=== PATIENT | male | born 1985 | race Caucasian/White ===

== ENCOUNTER 2016-06-26 07:08 | Emergency (ER) | payer OTHER ==
[~2016-06-26] VITALS: Ht 170.2 cm; Wt 97.5 kg
[~2016-06-26 07:08] MED LIST: AMOXICILLIN875 M1 PO; IBUPROFEN800 M1 PO; Magic mouthwash PO; PREDNISONE20 M1 PO
[2016-06-26 07:15] VITALS: BP 115/80
--- NOTE | 2016-06-26 07:55 | ED GENERAL ADULT ---
History of Present Illness General Chief Complaint: Lower Extremity Problems Stated Complaint: RIGHT KNEE PAIN Source: patient, family Exam Limitations: no limitations Vital Signs & Intake/Output Vital Signs & Intake/Output Vital Signs Date Time Temp Pulse Resp B/P Pulse O2 O2 Flow FiO2 Ox Delivery Rate 06/26 0806 96.9 06/26 0715 96.9 86 20 115/80 98 Room Air Allergies Coded Allergies: No Known Allergies (11/13/15) Reconcile Medications Naproxen (Naprosyn) 500 MG TABLET 1 TAB PO BID KNEE PAIN Triage Note: PT TO ED C/O RIGHT KNEE PAIN X MONTHS. WORSE LAST NIGHT, STATES HE WAS UNABLE TO WALK ON IT. PAIN IS TO RIGHT KNEE AND BEHIND RIGHT KNEE. STATES PAIN RADIATES UP TO RIGHT HIP WELL. REFUSING MEDS IN TRIAGE. DENIES ANY INJURY. Triage Nurses Notes Reviewed? yes HPI: This is a 30-year-old male with no significant past medical history who comes in for chief complaint of right knee pain. He does state that he has chronic bilateral knee pain for the past year to year and a half. However, his right knee is worse than the left. He states that the that knee clicks, locks, and even gives out at times. Last night he felt a sharp pain in the back of his knee and the upper pole that radiated to his right hip. He rates it a 10 out of 10 stabbing pain that only remits when he is laying down and not putting any pressure on that leg. 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 He cannot remember the nature of the tumor. He does states that he had his entire leg in a cast for 6-8 months. Denies any chemotherapy or radiotherapy. Patient denies any constitutional symptoms including fever, night sweats, rash, nausea, vomiting, any other joint pain, swelling, or erythema. (LEÓN MORENO,[facility]) Past History Travel History Traveled to [place] past 21 day No Medical History Any Pertinent Medical History? none Neurological: NONE EENT: NONE Cardiovascular: NONE Respiratory: NONE Gastrointestinal: NONE Hepatic: NONE Renal: NONE Musculoskeletal: NONE Psychiatric: NONE Endocrine: NONE Blood Disorders: NONE Cancer(s): NONE Surgical History Surgical History: childhood tumor removal from the right knee. Psychosocial History What is your primary language Croatian Tobacco Use: Never used ETOH Use: occasional use Illicit Drug Use: denies illicit drug use Family History Hx Contributory? No (KARLENE TRAORE MD) Review of Systems Review of Systems Constitutional: Denies: chills, diaphoresis, fever, malaise, weakness, unexplained weight loss. EENTM: Denies: blurred vision, double vision. Respiratory: Denies: cough, short of breath. Cardiovascular: Denies: chest pain, palpitations. GI: Reports: no symptoms. Genitourinary: Reports: no symptoms. Musculoskeletal: Reports: joint pain, joint swelling, muscle pain, muscle stiffness. Skin: Reports: no symptoms. Denies: erythema, lesions, rash. (LEÓN MORENO,KARLENE) Physical Exam Physical Exam General Appearance: well developed/nourished, no apparent distress, alert, awake , comfortable Head: atraumatic, normal appearance Eyes: Bilateral: normal appearance, PERRL, EOMI. Ears, Nose, Throat: normal pharynx Neck: supple Respiratory: normal breath sounds, chest non-tender Cardiovascular: regular rate/rhythm Gastrointestinal: soft, non-tender Extremities: upon inspection, right knee and left knee symmetrical, no swelling, erythema, effusion noted. Tender to palpation posterior aspect of knee, lateral aspect of the knee joint, and the superior pole of patella. Patient does endorse tenderness upon deep palpation of the IT band. Range of motion within normal limits, however patient does complain of tenderness on extension. Negative anterior drawer sign, negative posterior drawer sign. Patient has normal range of motion on passive flexion of hip joint, strength within normal limits. Core Measures ACS in differential dx? No CVA/TIA Diagnosis: No Severe Sepsis Present: No Septic Shock Present: No (KARLENE TRAORE MD) Progress Differential Diagnoses I considered the following diagnoses in my evaluation of the patient: [paterlalr bursitis, patellar subluxation, patellofemoral pain, bakers cyst rupture, IT band inflammation, bony tumor] Initial ED EKG: none (KARLENE TRAORE MD) Plan of Care: Orders Procedure Date/time Status Durable Medical Equipment 06/27 907 Active Current Medications Sig/Matthew Start time Last Medication Dose Stop Time Status Admin Ibuprofen 400 MG ONCE ONE 06/27 799 CAN (Motrin) 06/26 800 At this time, we will send patient for three-view x-ray of the knee and 2 of the femur to rule out any acute process of the knee. In addition, we'll provide pain relief. (KARLENE TRAORE MD) Departure Departure Time of Disposition: 906 Disposition: HOME OR SELF CARE Condition: Stable Clinical Impression Primary Impression: Knee pain, acute Secondary Impressions: Knee pain, chronic Referrals: PATIENT HAS NO PRIMARY CARE DR (PCP/Family) Departure Forms: Customer Survey General Discharge Information Prescriptions: Current Visit Scripts Naproxen (Naprosyn) 1 TAB PO BID #20 TAB (KARLENE TRAORE MD) Resident Co-Sign Statement Statement: ED Attending supervision documentation- [x] I saw and evaluated the patient. I have also reviewed all the pertinent lab results and diagnostic results. I agree with the findings and the plan of care as documented in the Resident's documentation. [] I have reviewed the ED Record and agree with the Resident's documentation. [] Additions or exceptions (if any) to the Resident's note and plan are summarized below: [] (BENJI MORENO,[facility]) Critical Care Note Critical Care Note Critical Care Time: non-applicable (KARLENE TRAORE MD)
--- NOTE | 2016-06-26 09:04 | RADIOLOGY REPORT ---
EXAMINATION: XR FEMUR, RIGHT RIGHT KNEE CLINICAL INFORMATION: Knee pain, patellar fracture. Monterroso's cyst. COMPARISON: None TECHNIQUE: AP and lateral views of the right femur were obtained. 4 views of the right knee. FINDINGS: RIGHT KNEE: The bones and joints are normal. There are 2 rounded 3 mm calcific densities present adjacent to one another and medial to the medial cortex of maximal tibia by approximately 1.5 cm and distal to the joint line by approximately 4 cm. The surrounding soft tissues are otherwise unremarkable. RIGHT FEMUR: The bone and surrounding soft tissues are normal. IMPRESSION: RIGHT KNEE: 2 round calcific densities in the soft tissues medial to the proximal tibia of uncertain clinical significance. This may reflect dystrophic calcification related to prior soft tissue injury. RIGHT FEMUR: Unremarkable.
[2016-06-26] MEDS ORDERED: NAPROSYN500 M1 PO (09:16)
== END 2016-06-26 09:30 ==
LOC: ERH 07:08
DX: M25.561 Pain in right knee (principal); R52 Pain, unspecified; G89.29 Other chronic pain
CPT/HCPCS: 73552; 73562-RT

== ENCOUNTER 2017-07-14 14:03 | Emergency (ER) | payer OTHER ==
[~2017-07-14] VITALS: Ht 170.2 cm; Wt 99.8 kg
[~2017-07-14 14:03] MED LIST changes: +ADDERALL XR 2020 MG PO; +EYE DROP TEARS15 M1 OS; +NAPROSYN500 M1 PO; +TAMIFLU75 M1 PO; +VALACYCLOVIR1000 MG PO; +ZOFRAN ODT4 M1 SL
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
[2017-07-14 16:10] LABS: ABSOLUTE BASOPHIL COUNT 0 /CUMM (0.0-0.2); ABSOLUTE EOSINOPHIL COUNT 0.1 /CUMM (0.0-0.7); ABSOLUTE GRANULOCYTE CT 3.8 /CUMM (1.4-6.5); ABSOLUTE LYMPH COUNT 1.3 /CUMM (1.2-3.4); ABSOLUTE MONOCYTE COUNT 0.5 /CUMM (0.10-0.60); BASOPHIL % 0.6 % (0.0-2.0); EOSINOPHIL % 2.2 % (0-5); GRANULOCYTE % 65.9 % (42.2-75.2); HEMATOCRIT 45.2 % (42-52); MEAN CORPUSCULAR HGB 29.8 PG (27.0-31.0); MEAN CORPUSCULAR HGB CONC 33.9 G/DL (33.0-37.0); MEAN CORPUSCULAR VOLUME 87.7 FL (80.0-94.0); MEAN PLATELET VOLUME 8.9 FL (7.4-10.4); PLATELET COUNT 226 /CUMM (130-400); RBC DISTRIBUTION WIDTH 12.3 % (11.5-14.5); RED BLOOD CELL CT 5.16 /CUMM (4.70-6.10); WHITE BLOOD CELL COUNT 5.7 /CUMM (4.8-10.8)
[2017-07-14] MEDS ORDERED: FLUOXETINE HCL20 M2 PO (16:50)
[2017-07-14] MEDS ORDERED: ALPRAZOLAM0.5 M4 PO (16:51)
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
[2017-07-15 10:22] VITALS: BP 126/74
== END 2017-07-15 10:33 ==
LOC: ERH 14:03
PROVIDERS: Emergency Medicine
DX: F32.9 Major depressive disorder, single episode, unspecified (principal); R45.851 Suicidal ideations
CPT/HCPCS: 80307; G0463; G0480